=== PATIENT | female | born 1950 | race Caucasian/White ===

== ENCOUNTER → 2017-03-31 08:29 | Outpatient (CLI) | payer MEDICAID ==
[~2017-03-31 08:29] MED LIST: BENICAR HCT 20-1 TA1 PO; DEMEROL50 MG PO; ESTRADERM 0.10.1 MG TD; PRILOSEC20 MG PO; STERAPRED 5MG 65 M1 PO; TENORMIN100 MG PO; ZYRTEC10 MG PO
== END | disposition home or self-care (01) ==
LOC: D.NM 03-26 09:00
DX: R10.9 Unspecified abdominal pain (principal)

== ENCOUNTER → 2017-04-24 12:16 | Outpatient (CLI) | payer MEDICAID | END | disposition home or self-care (01) | LOC: D.US 12:16 | DX: M79.605 Pain in left leg (principal) ==

== ENCOUNTER → 2017-05-30 13:03 | Outpatient (CLI) | payer MEDICAID | END | disposition home or self-care (01) | LOC: D.CT 13:00 | DX: R04.2 Hemoptysis (principal) ==

== ENCOUNTER → 2018-04-24 14:33 | Outpatient (CLI) | payer MEDICARE | END | disposition home or self-care (01) | LOC: D.CT 14:33 | DX: R10.9 Unspecified abdominal pain (principal) ==

== ENCOUNTER → 2018-05-27 18:06 | Outpatient (CLI) | payer MEDICARE | END | disposition home or self-care (01) | LOC: D.LABREF 18:06 | DX: A02.9 Salmonella infection, unspecified (principal) ==

== ENCOUNTER 2019-07-23 08:00 | Outpatient (CLI) | payer OTHER | END 2019-07-23 23:59 | disposition home or self-care (01) | LOC: D.MAMMO 08:00 | PROVIDERS: ATTEND Family Medicine | DX: Z12.31 Encounter for screening mammogram for malignant neoplasm of breast (principal) ==